=== PATIENT | female | born 1965 ===

== ENCOUNTER 2017-02-05 15:05 | Emergency (ER) | payer MEDICAID ==
[2017-02-05 15:05] VITALS: BMI 34.2
[2017-02-05 15:16] VITALS: BP 122/80; PULSE 98; RESP 20; TEMP 97.7; O2SAT 98
== END 2017-02-05 15:11 | disposition left against medical advice (07) ==
LOC: C.ER 15:05
DX: R21 Rash and other nonspecific skin eruption (principal); Z02.9 Encounter for administrative examinations, unspecified

== ENCOUNTER 2017-02-08 07:26 | Emergency (ER) | payer MEDICAID ==
[2017-02-08 07:26] VITALS: BMI 34.2
[2017-02-08 07:32] VITALS: PULSE 91; RESP 16; TEMP 97.5; O2SAT 98
[2017-02-08 07:34] VITALS: BP 122/86
--- NOTE | 2017-02-08 07:50 | C.PDOC ---
History Of Present Illness 51 year old female presents to the ED with complaints of upper back and neck pain that has worsened since diagnosed with shingles Wednesday (02/05/2017). She states she has taken antivirals and prednisone. Patient notes that rash has slightly improved and has taken Motrin with no relief. Patient denies any nausea , vomiting, and any other complaints at this time. Time Seen by Provider: 02/08/17 07:41 Chief Complaint (Nursing): Back Pain History Per: Patient History/Exam Limitations: no limitations Onset/Duration Of Symptoms: Days Current Symptoms Are (Timing): Still Present Quality Of Discomfort: "Pain" Previous Symptoms: Back Pain, Neck Pain Past Medical History Reviewed: Historical Data, Nursing Documentation, Vital Signs Vital Signs: Last Vital Signs Temp 97.5 F L 02/08/17 07:31 Pulse 91 H 02/08/17 07:31 Resp 16 02/08/17 07:31 BP 122/86 02/08/17 07:32 Pulse Ox 98 02/08/17 08:01 - Medical History PMH: Anxiety, Asthma (never hospitalized), Back Problems (bulging disc), Bipolar Disorder, Depression, Fractures (right ankle), Gastritis Surgical History: Endoscopy - [facility] Procedures GROUP PSYCHOTHERAPY (12/21/16) INDIVIDUAL PSYCHOTHERAPY, COGNITIVE-BEHAVIORAL (12/21/16) INDIVIDUAL PSYCHOTHERAPY, SUPPORTIVE (12/21/16) Family History: States: Unknown Family Hx - Social History Hx Tobacco Use: Yes Hx Alcohol Use: No Hx Substance Use: Yes - Immunization History Hx Tetanus Toxoid Vaccination: No Hx Influenza Vaccination: No Hx Pneumococcal Vaccination: No Review Of Systems Constitutional: Negative for: Fever, Chills Respiratory: Negative for: Cough Gastrointestinal: Negative for: Nausea, Vomiting, Diarrhea Musculoskeletal: Positive for: Neck Pain, Back Pain (upper back pain) Skin: Positive for: Rash (has improved since shingles diagnosis) Physical Exam - Physical Exam Appears: Non-toxic, No Acute Distress Skin: Warm, Dry, Rash (vesicular rash to right side of neck and upper back) Neck: Normal ROM, Supple, Other (vesicular rash to right side of neck ) Cardiovascular: Rhythm Regular, No Murmur Respiratory: No Rales, No Rhonchi, No Stridor, No Wheezing Gastrointestinal/Abdominal: Soft, No Tenderness, No Distention, No Guarding, No Rebound Back: Other (Vesicular rash to upper back ) Extremity: Normal ROM, No Tenderness Neurological/Psych: Oriented x3 ED Course And Treatment O2 Sat by Pulse Oximetry: 98 Medical Decision Making Medical Decision Making: Discussed with patient risk of opiate addiction and dependence at bed side. Disposition - Disposition Disposition: HOME/ ROUTINE Disposition Time: 08:15 Condition: STABLE Additional Instructions: please continue to take the medications prescribed by your pmd. please return to er with worsening symptoms or concerns Prescriptions: traMADol [Ultram] 50 mg PO Q8 PRN #10 tab PRN Reason: Pain, Severe (8-10) Instructions: Lisa (ED) - Clinical Impression Clinical Impression: Postherpetic neuralgia - Scribe Statement The provider has reviewed the documentation as recorded by the Scribraymon Jacques All medical record entries made by the Scribe were at my direction and personally dictated by me. I have reviewed the chart and agree that the record accurately reflects my personal performance of the history, physical exam, medical decision making, and the department course for this patient. I have also personally directed, reviewed, and agree with the discharge instructions and disposition.
== END 2017-02-08 08:07 | disposition home or self-care (01) ==
LOC: C.ER 07:26
DX: B02.29 Other postherpetic nervous system involvement (principal)

== ENCOUNTER 2017-06-16 12:52 | Emergency (ER) | payer MEDICAID ==
[2017-06-16 13:06] VITALS: BMI 30.7
[2017-06-16 13:10] VITALS: O2SAT 99
[2017-06-16] MEDS ORDERED: Sodium Chloride 0.9% 1,000 ML IV ONE (13:25)
[2017-06-16 14:02] LABS: BASO % 0.7 % (0.0-2.0); EOS # 0.3 K/uL (0.0-0.7); EOS % 5.7 % (0.0-4.0); HEMATOCRIT 41.1 % (34.0-47.0); LYMPH # 1.7 K/uL (1.0-4.3); LYMPH % 29.5 % (20.0-40.0); MEAN CELL VOLUME 91.2 fL (81.0-99.0); MEAN CORPUSCULAR HEMOGLOBIN 30.8 pg (27.0-31.0); MEAN CORPUSCULAR HGB CONC 33.8 g/dL (33.0-37.0); MEAN PLATELET VOLUME 7.6 fL (7.2-11.7); MONO # 0.3 K/uL (0.0-0.8); MONO % 5.5 % (0.0-10.0); RED CELL DISTRIBUTION WIDTH 13.3 % (11.5-14.5); WHITE BLOOD COUNT 5.7 K/uL (4.8-10.8)
[2017-06-16 14:06] LABS: RBC URINE 1 /hpf (0-3); URINE BILIRUBIN NEGATIVE (NEGATIVE); URINE BLOOD NEGATIVE (NEGATIVE); URINE CALCIUM OXALATE CRYSTALS OCC /hpf (<OCC); URINE COLOR Yellow (YELLOW); URINE GLUCOSE (UA) NORMAL (Normal); URINE KETONE NEGATIVE (NEGATIVE); URINE LEUKOCYTE ESTERASE TRACE Leu/uL (Negative); URINE PROTEIN NEGATIVE (NEGATIVE); URINE UROBILINOGEN NORMAL mg/dL (0.2-1.0); WBC URINE 2 /hpf (0-5)
[2017-06-16 14:13] LABS: CHLORIDE 101 mmol/L (98-107); POTASSIUM 3.3 mmol/L (3.6-5.2); SODIUM 141 mmol/L (132-148)
[2017-06-16 14:15] LABS: ALB/GLOB RATIO 1.2 (1.0-2.1); ALKALINE PHOSPHATASE 100 U/L (38-126); AST/SGOT 18 U/L (14-36); BILIRUBIN,TOTAL 0.6 mg/dL (0.2-1.3); BLOOD UREA NITROGEN 11 mg/dL (7-17); CARBON DIOXIDE 25 mmol/L (22-30); GFR AFRICAN-AMERICAN > 60
[2017-06-16 14:16] LABS: ALCOHOL SERUM < 10 mg/dl (0-10); ALT/SGPT 30 U/L (9-52); CALCIUM 8.9 mg/dl (8.6-10.4); GLUCOSE,RANDOM 130 mg/dL (65-105); MAGNESIUM 1.8 mg/dL (1.6-2.3)
[2017-06-16] MEDS ORDERED: Potassium Chloride 20 mEq ER Tab PO STA (14:58)
--- NOTE | 2017-06-16 15:02 | C.PDOC ---
History Of Present Illness Pt states that she feels "dehydrated". States that she saw an top precipitator operator helper that told her that her IOP was low. He wants her to see an rn first assistant. Time Seen by Provider: 06/16/17 13:14 Chief Complaint (Nursing): Dizziness/Lightheaded History Per: Patient Onset/Duration Of Symptoms: Days (few) Current Symptoms Are (Timing): Still Present Current Symptoms: Malaise Possible Causative Factor(s): Other (Vomiting 2 days ago) Fall Associated With With Symptoms: No Severity: Moderate Additional History Per: Prior Records - Symptoms Of CVA Associated Symptoms: denies: Impaired Speech, Seizure Activity, New Vision Deficit(Left), New Vision Deficit(Right), Decreased Ability To Walk, New Confusion Recent Head Trauma: No Past Medical History Reviewed: Historical Data, Nursing Documentation, Vital Signs Vital Signs: Last Vital Signs Temp 98.2 F 06/16/17 13:09 Pulse 90 06/16/17 13:09 Resp 20 06/16/17 13:09 BP 115/77 06/16/17 13:09 Pulse Ox 99 06/16/17 13:09 - Medical History PMH: Anxiety, Asthma (never hospitalized), Back Problems (bulging disc), Bipolar Disorder, Depression, Fractures (right ankle), Gastritis Surgical History: Endoscopy - [facility] Procedures GROUP PSYCHOTHERAPY (12/21/16) INDIVIDUAL PSYCHOTHERAPY, COGNITIVE-BEHAVIORAL (12/21/16) INDIVIDUAL PSYCHOTHERAPY, SUPPORTIVE (12/21/16) Family History: States: Unknown Family Hx - Social History Hx Tobacco Use: Yes Hx Alcohol Use: No Hx Substance Use: Yes (USED TO PER PATIENT) - Immunization History Hx Tetanus Toxoid Vaccination: No Hx Influenza Vaccination: No Hx Pneumococcal Vaccination: No Review Of Systems Except As Marked, All Systems Reviewed And Found Negative. Constitutional: Positive for: Malaise. Negative for: Fever Eyes: Negative for: Pain, Vision Change Cardiovascular: Negative for: Chest Pain Respiratory: Negative for: Cough, Shortness of Breath Gastrointestinal: Positive for: Nausea, Vomiting. Negative for: Abdominal Pain , Diarrhea, Melena, Hematochezia, Hematemesis Genitourinary: Positive for: Frequency. Negative for: Dysuria Musculoskeletal: Negative for: Neck Pain Skin: Negative for: Rash Neurological: Negative for: Weakness, Numbness, Headache, Dizziness Psych: Negative for: Psychosis, Suicidal ideation Physical Exam - Physical Exam Appears: Non-toxic, No Acute Distress Skin: Normal Color, Warm, Dry, No Rash Head: Atraumatic, Normacephalic Eye(s): bilateral: PERRL, EOMI, Other (contact lenses in place) Oral Mucosa: Moist Neck: Normal ROM, Supple Cardiovascular: Rhythm Regular Respiratory: Normal Breath Sounds, No Accessory Muscle Use Gastrointestinal/Abdominal: Soft, No Tenderness Back: No CVA Tenderness Extremity: Normal ROM, No Pedal Edema, No Calf Tenderness Neurological/Psych: Oriented x3, Normal Motor, Normal Sensation ED Course And Treatment - Laboratory Results Result Diagrams: 06/16/17 13:54 06/16/17 13:54 Lab Interpretation: No Acute Changes Urine POC: Negative O2 Sat by Pulse Oximetry: 99 Pulse Ox Interpretation: Normal Progress - Interventions Interventions:: Observation, Intravenous fluid - Data Reviewed Data Reviewed: Lab, Old records - Patient Status Patient status: Mostly improved - Continuity of Care Discussed patient case with:: Patient, ED Nurse - Patient Plan Patient Plan: Discharge, F/U with PCP, Continue present meds Disposition Counseled Patient/Family Regarding: Studies Performed, Diagnosis, Need For Followup, Smoking Cessation - Disposition Referrals: Abilio Pepper MD [Medical Doctor] - Ulises Meier MD [Staff Provider] - Disposition: HOME/ ROUTINE Disposition Time: 15:04 Condition: IMPROVED Additional Instructions: Drink plenty of fluids. Avoid illicit drugs. Follow up with your primary doctor and with an Marketing Data Specialist. Return to the ER if you develop worsening of symptoms or if you have any other concerns. Forms: [employer] (Czech), General Discharge Instructions - Clinical Impression Clinical Impression: Malaise and fatigue
[2017-06-16 15:20] VITALS: BP 133/78; PULSE 78; RESP 18; TEMP 98.1
[2017-06-16] MEDS ORDERED: Potassium Chloride 20 mEq ER Tab PO ONE (15:27)
== END 2017-06-16 15:28 | disposition home or self-care (01) ==
LOC: C.ER 12:52
DX: R53.81 Other malaise (principal); R53.83 Other fatigue
CPT/HCPCS: 80053; 80164; 80320; 80324; 80345; 80346; 80349; 80353; 80358; 80361; 81001; 83735; 83992; 85025; 96360; 99284; J7040

== ENCOUNTER 2017-06-22 05:15 | Inpatient (IN) | payer MEDICAID ==
[2017-06-22 05:15] VITALS: BMI 30.7
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
[2017-06-22 06:43] LABS: BASO % 0.5 % (0.0-2.0); EOS # 0.1 K/uL (0.0-0.7); LYMPH # 1.4 K/uL (1.0-4.3); LYMPH % 20.2 % (20.0-40.0); MEAN CELL VOLUME 91.4 fL (81.0-99.0); MEAN CORPUSCULAR HEMOGLOBIN 31.2 pg (27.0-31.0); MEAN CORPUSCULAR HGB CONC 34.2 g/dL (33.0-37.0); MEAN PLATELET VOLUME 7.2 fL (7.2-11.7); MONO # 0.3 K/uL (0.0-0.8); RED CELL DISTRIBUTION WIDTH 13.2 % (11.5-14.5); WHITE BLOOD COUNT 6.9 K/uL (4.8-10.8)
[2017-06-22 07:28] VITALS: RESP 20
[2017-06-22 07:39] LABS: CHLORIDE 102 mmol/L (98-107)
[2017-06-22 07:40] LABS: POTASSIUM 3.7 mmol/L (3.6-5.2); SODIUM 145 mmol/L (132-148)
[2017-06-22 07:42] LABS: ALB/GLOB RATIO 1.1 (1.0-2.1); ALKALINE PHOSPHATASE 90 U/L (38-126); ALT/SGPT 42 U/L (9-52); AST/SGOT 25 U/L (14-36); BILIRUBIN,TOTAL 0.6 mg/dL (0.2-1.3); BLOOD UREA NITROGEN 14 mg/dL (7-17); CARBON DIOXIDE 25 mmol/L (22-30); GFR AFRICAN-AMERICAN > 60; GLUCOSE,RANDOM 100 mg/dL (65-105)
[2017-06-22 07:43] LABS: ALCOHOL SERUM < 10 mg/dl (0-10); CALCIUM 9.1 mg/dl (8.6-10.4)
[2017-06-22 10:00] LABS: URINE BILIRUBIN NEGATIVE (NEGATIVE); URINE BLOOD NEGATIVE (NEGATIVE); URINE COLOR Yellow (YELLOW); URINE GLUCOSE (UA) NORMAL (Normal); URINE KETONE NEGATIVE (NEGATIVE); URINE LEUKOCYTE ESTERASE NEG Leu/uL (Negative); URINE PROTEIN NEGATIVE (NEGATIVE); URINE UROBILINOGEN NORMAL mg/dL (0.2-1.0)
[2017-06-22 11:07] VITALS: O2SAT 99
[2017-06-22] MEDS ORDERED: Albuterol HFA 90 mcg/actuation (8 g) INH PRN (12:28)
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
--- NOTE | 2017-06-22 14:10 | PCM.BM ---
<Nichole Orellana - Last Filed: 06/22/17 14:07> Treatment Plan Problems - Problems identified on initial assessmt Depression Date Initiated: 06/22/17 Time Initiated: 14:07 Assessment reference: NA Status: Active Substance Abuse Date Initiated: 06/22/17 Time Initiated: 14:08 Assessment reference: NA Status: Active Treatment assets and liabiliti Patient Assests: cooperative, ADL independent, good past tx response, cognitively intact Patient Liabilities: live alone, poor support system, substance abuse (crack/ cocaine) - Milieu Protocol Maintain good personal hygiene: daily Encourage regular showers Conduct patient checks and document Observation sheet: Q15 minutes Maintain personal safety: every shift Educate patient to report safety concerns to staff, every shift Monitor environment for contraband/sharps Medication safety: Monitor for expected outcome, potential side effects: every shift, Assess barriers to learning: every shift, Assess readiness for medication education: every shift Milieu Narrative: Bipolar depressed: -[id number] mg daily for now -Resume Depakote -Resume Seroquel 100 at bedtime -Attend groups and activities -Support and psychoeducation -CBT Cocaine: -Support and psychoeducation -[place] for abstinence -attend groups and activities Tobacco: -Patch -[place] for abstinence Panic disorder: -Zoloft -CBT 35 minutes Discharge/Continuing Care - Treatment Team Participation Patient/Family/SO Statement: Bipolar depressed: -[id number] mg daily for now -Resume Depakote -Resume Seroquel 100 at bedtime -Attend groups and activities -Support and psychoeducation -CBT Cocaine: -Support and psychoeducation -[place] for abstinence -attend groups and activities Tobacco: -Patch -[place] for abstinence Panic disorder: -Zoloft -CBT 35 minutes <Isma Brenner - Last Filed: 06/22/17 21:45> - Diagnosis (1) Bipolar disorder Status: Acute Interventions: 06/22/17 21:45 * Assess/adjust medications daily and /or as needed * See patient on an individual basis 7x/week to assess level of manic behaviors and stability * Discuss risks, benefits, side effects and alternatives of medications * (2) Cocaine abuse Status: Acute Interventions: 06/22/17 21:45 * Assess 7x/week regarding severity of withdrawal * Educate regarding risks, benefits, side effects and alternatives of medications * Use Motivational Interviewing for abstinence * Use CBT for relapse prevention * Medication management for withdrawal symptoms * Encourage medication assisted treatment * <MarkRamon - Last Filed: 06/23/17 10:23> - Diagnosis (1) Bipolar 1 disorder, depressed, severe Status: Acute Interventions: 06/23/17 10:23 * Assess/adjust medications daily and /or as needed * See patient on an individual basis 7x/week to assess level of manic behaviors and stability * Discuss risks, benefits, side effects and alternatives of medications (2) Cocaine use disorder, moderate, dependence Status: Acute Interventions: 06/23/17 10:25 * Assess 7x/week regarding severity of withdrawal * Educate regarding risks, benefits, side effects and alternatives of medications * Use Motivational Interviewing for abstinence * Use CBT for relapse prevention * Medication management for withdrawal symptoms * Encourage medication assisted treatment <Ronit Aaron - Last Filed: 06/23/17 11:10> Family Contact Family involvement: Famliy/SO not involved - Goals for Treatment Patient goals for treatment: "I [facility] to [facility] back to my [facility]. " Discharge/Continuing Care - Education Needs Education Needs: Patient Medication, Patient Coping Skills, Patient Placement options, Patient Community resources - Discharge Discharge Criteria: Tolerates medication w/o severe side effects, Free of paranoid thoughts, Free of agitation, No longer exhibiting s/s of withdrawal, Reduction of target symptoms Discharge to:: Home - Treatment Team Participation Discussed with Family/SO: No Was Patient/Family/SO present at Treatment Team Meeting: Yes
[2017-06-22] MEDS: Divalproex 500 mg DR Tab PO SCH (17:35)
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
--- NOTE | 2017-06-23 10:23 | PCM.PYCHPN ---
Psychiatric Progress Note - Psychiatric Progress Note Patient seen today, length of contact: 16 min Patient Chief Complaint: I am feeling better Problems Identified/Issues Discussed: The pt is seen, chart reviewed and case discussed. The pt is improving with medications and no breakthrough sxs reported or noted. No SEs from meds Support and psychoed given NH and CBt used After care discussed, he and SW called [facility] Medication Change: No Medical Record Reviewed: Yes Mental Status Examination - Cognitive Function Orientation: Person, Place, Situation, Time Memory: Intact Attention: WNL Concentration: WNL Association: WNL Fund of Knowledge: Poor - Mood Mood: Depressed, Anxious - Affect Affect: Constricted - Speech Speech: Soft - Formal Thought Process Formal Thought Process: No Impairment - Suicidal Ideation Suicidal Ideation: No - Homicidal Ideation Homicidal Ideation: No Goal/Treatment Plan - Goal/Treatment Plan Need for Continued Stay: Discharge may exacerbated symptoms, Severe functional impairment Progress Toward Problem(s) and Goals/Treatment Plan: Bipolar 1 d/o , depressed, severe Panic d/o w/o agoraphobia Borderline Pers. d/o Cocaine use d/o - moderate Tobacco use d/o - moderate Bipolar depressed: -[id number] mg daily for now -Resume Depakote -Resume Seroquel 100 at bedtime -Attend groups and activities -Support and psychoeducation -CBT Cocaine: -Support and psychoeducation -[place] for abstinence -attend groups and activities Tobacco: -Patch -[place] for abstinence Panic disorder: -Zoloft -CBT - Smoking Cessation Smoking Cessation Initiated: No
[2017-06-23] MEDS: Divalproex 500 mg DR Tab PO SCH ×2 (10:29→17:11)
[2017-06-23] MEDS: Fluticasone Nasal 50 mcg/Spray NAS SCH (10:31)
[2017-06-23] MEDS ORDERED: Aluminum Hydroxide/Magnesium Hydroxide Susp (30 mL) PO PRN (23:30)
[2017-06-24 07:42] VITALS: BP 88/53; PULSE 64; TEMP 98
[2017-06-24] MEDS: Divalproex 500 mg DR Tab PO SCH (09:34)
[2017-06-24] MEDS: Fluticasone Nasal 50 mcg/Spray NAS SCH (09:34)
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
== END 2017-06-24 10:48 | disposition home or self-care (01) | DRG 430 ==
LOC: C.ER 05:15 → C.5E 11:10
PROVIDERS: ADMIT Psychiatry & Neurology Psychiatry; ATTEND Psychiatry & Neurology Psychiatry
DX: F31.4 Bipolar disorder, current episode depressed, severe, without psychotic features (principal); F14.20 Cocaine dependence, uncomplicated; F41.0 Panic disorder [episodic paroxysmal anxiety]; F17.210 Nicotine dependence, cigarettes, uncomplicated

== ENCOUNTER 2017-08-13 08:35 | Emergency (ER) | payer MEDICAID ==
[2017-08-13 09:10] VITALS: BP 117/78; PULSE 89; RESP 18; TEMP 98.4; O2SAT 98; BMI 29.0
--- NOTE | 2017-08-13 09:18 | C.PDOC ---
History Of Present Illness 52 year old female, with past medical history of asthma, presents to Emergency Department for evaluation of cough, white phlegm, and congestion for the last 3 days. Patient reports using inhaler at home 3-4 times a day without improvement. Patient states she had fever (Tmax 99) yesterday. Otherwise, patient denies any chest pain, throat pain, ear pain, headache, or any other associated symptoms at this time. Time Seen by Provider: 08/13/17 09:10 Chief Complaint (Nursing): Cough, Cold, Congestion History Per: Patient History/Exam Limitations: no limitations Onset/Duration Of Symptoms: Days (3) Current Symptoms Are (Timing): Still Present Location Of Pain: None Sick Contacts (Context): None Associated Symptoms: Fever, Cough, Sputum, Nasal Congestion. denies: Sore Throat, Neck Pain, Sinus Drainage, Myalgias, Nausea, Vomiting, Diarrhea Ear Symptoms: Bilateral: None Recent travel outside of the [place]: No Additional History Per: Patient Past Medical History Reviewed: Historical Data, Nursing Documentation, Vital Signs Vital Signs: Last Vital Signs Temp 98.4 F 08/13/17 08:49 Pulse 89 08/13/17 08:49 Resp 18 08/13/17 08:49 BP 117/78 08/13/17 08:49 Pulse Ox 98 08/13/17 09:23 - Medical History PMH: Anxiety, Asthma (takes Albuterol), Back Problems (bulging disc), Bipolar Disorder, Depression, Fractures (right ankle...approx 12 yrs ago), Gastritis ( No Tx) Surgical History: Endoscopy - [facility] Procedures GROUP PSYCHOTHERAPY (12/21/16) INDIVIDUAL PSYCHOTHERAPY, COGNITIVE-BEHAVIORAL (12/21/16) INDIVIDUAL PSYCHOTHERAPY, SUPPORTIVE (12/21/16) Family History: States: Unknown Family Hx - Social History Hx Tobacco Use: Yes Hx Alcohol Use: No Hx Substance Use: Yes - Immunization History Hx Tetanus Toxoid Vaccination: No Hx Influenza Vaccination: No Hx Pneumococcal Vaccination: No Review Of Systems Except As Marked, All Systems Reviewed And Found Negative. Constitutional: Positive for: Fever ENT: Positive for: Nose Congestion. Negative for: Ear Pain, Nose Discharge, Throat Pain, Throat Swelling Cardiovascular: Negative for: Chest Pain, Palpitations, Edema, Light Headedness Respiratory: Positive for: Cough, Shortness of Breath, Sputum (white). Negative for: Hemoptysis Gastrointestinal: Negative for: Nausea, Vomiting, Abdominal Pain Skin: Negative for: Rash, Bruising Neurological: Negative for: Headache, Dizziness Physical Exam - Physical Exam Appears: Non-toxic, No Acute Distress Skin: Normal Color, Warm, Dry Head: Atraumatic, Normacephalic Eye(s): bilateral: Normal Inspection, EOMI Ear(s): Bilateral: Normal Nose: Normal Oral Mucosa: Moist Throat: Normal, No Erythema Neck: Normal ROM, Supple Chest: Symmetrical Cardiovascular: Rhythm Regular, No Murmur Respiratory: Normal Breath Sounds, No Rales, No Rhonchi, No Wheezing Extremity: Normal ROM, No Pedal Edema Neurological/Psych: Oriented x3, Normal Speech Gait: Steady ED Course And Treatment O2 Sat by Pulse Oximetry: 98 (on RA) Pulse Ox Interpretation: Normal Progress Note: Patient was given Zithromax PO. Medical Decision Making Medical Decision Making: Patient remained afebrile alert and oriented with stable vital signs during ER evaluation. Zithromax given PO. Patient given follow up instructions. Instructed to return to ER if symptoms worsen or new symptoms arise. Disposition Counseled Patient/Family Regarding: Need For Followup, Rx Given - Disposition Referrals: Homar Del Toro DPM [[facility]] - Disposition: HOME/ ROUTINE Disposition Time: 09:30 Condition: GOOD Additional Instructions: Follow up with your primary medical doctor or clinic in 2-5 days for further evaluation. Take medications as prescribed. Return to the emergency department at any time if symptoms persist or worsen. 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 - Scribe Statement The provider has reviewed the documentation as recorded by the Scribe Adele Sim All medical record entries made by the Scribe were at my direction and personally dictated by me. I have reviewed the chart and agree that the record accurately reflects my personal performance of the history, physical exam, medical decision making, and the department course for this patient. I have also personally directed, reviewed, and agree with the discharge instructions and disposition.
== END 2017-08-13 09:48 | disposition home or self-care (01) ==
LOC: C.ER 08:35
DX: J06.9 Acute upper respiratory infection, unspecified (principal)

== ENCOUNTER 2018-02-17 19:59 | Emergency (ER) | payer SELFPAY ==
[2018-02-17 20:00] VITALS: BMI 30.7
[2018-02-17 20:07] VITALS: BP 131/55; RESP 20; TEMP 98; O2SAT 100
[2018-02-17] MEDS ORDERED: Albuterol-Ipratrop 3 mg / 0.5 (3 ml) UD IH STA (20:15)
[2018-02-17] MEDS ORDERED: Albuterol 0.083% Inhal Sol (2.5 mg/3 mL) UD INH STA (20:15)
[2018-02-17] MEDS ORDERED: Albuterol-Ipratrop 3 mg / 0.5 (3 ml) UD ONE ×2 (20:21→20:26)
[2018-02-17] MEDS ORDERED: Albuterol 0.083% Inhal Sol (2.5 mg/3 mL) UD ONE (20:38)
--- NOTE | 2018-02-17 22:09 | C.PDOC ---
History Of Present Illness 52 year old female with a Hx of asthma presents to the ER with a complaint of a cough for the past week. Patient states she does not have a nebulizer at home, she has been using her pump with relief. Denies fever, chills, sore throat, sick contact, or recent travel. Time Seen by Provider: 02/17/18 20:08 Chief Complaint (Nursing): Cough, Cold, Congestion History Per: Patient History/Exam Limitations: no limitations Onset/Duration Of Symptoms: Days Current Symptoms Are (Timing): Still Present Recent travel outside of the [place]: No Past Medical History Reviewed: Historical Data, Nursing Documentation, Vital Signs Vital Signs: Last Vital Signs Temp 98.0 F 02/17/18 20:03 Pulse 74 02/17/18 22:41 Resp 20 02/17/18 22:41 BP 131/55 L 02/17/18 20:03 Pulse Ox 100 02/17/18 22:41 - Medical History PMH: Anxiety, Asthma (takes Albuterol), Back Problems (bulging disc), Bipolar Disorder, Depression, Fractures (right ankle...approx 12 yrs ago), Gastritis ( No Tx) Surgical History: Endoscopy - [facility] Procedures GROUP PSYCHOTHERAPY (12/21/16) INDIVIDUAL PSYCHOTHERAPY, COGNITIVE-BEHAVIORAL (12/21/16) INDIVIDUAL PSYCHOTHERAPY, SUPPORTIVE (12/21/16) Family History: States: Unknown Family Hx - Social History Hx Tobacco Use: Yes Hx Alcohol Use: No Hx Substance Use: No - Immunization History Hx Tetanus Toxoid Vaccination: No Hx Influenza Vaccination: Yes Hx Pneumococcal Vaccination: No Review Of Systems Constitutional: Negative for: Fever, Chills ENT: Negative for: Throat Pain Respiratory: Positive for: Cough Physical Exam - Physical Exam Appears: Non-toxic Skin: Normal Color, Warm, Dry Head: Atraumatic, Normacephalic Eye(s): bilateral: Normal Inspection Nose: Normal Oral Mucosa: Moist Throat: Normal, No Erythema, No Exudate Chest: Symmetrical, No Tenderness Cardiovascular: Rhythm Regular Respiratory: No Rales, No Rhonchi, Wheezing (Diffuse expiratory) Neurological/Psych: Oriented x3, Normal Speech ED Course And Treatment O2 Sat by Pulse Oximetry: 100 (Room air) Pulse Ox Interpretation: Normal - Radiology CXR: Interpreted by Me, Viewed By Me CXR Interpretation: Yes: No Acute Disease. No: Infiltrates Progress Note: CXR ordered, results were negative. Albuterol nebulizer and prednisone administered. On reevaluation, patient reports improvement of symptoms, she is resting comfortably in no acute respiratory distress, vitals are stable. Patient is requesting an Rx for cough medicine, Rx for tessalon; patient states she is already taking tessalon at home, Rx for bromfed given. Patient returns again stating she does not want any cough medicine she can get OTC, she wants something stronger with [facility]iates. [facility], [facility] found to have previous Rx for promethazine with codiene in November, October, and in 2017 had a total of 9 Rx for promethazine with codiene. Explained to patient that opiates are a dangerous substance and can create dependancy, patient understands and is requesting 1 dose here in the ER, patient given dose of promethazine with codiene and discharged home, patient states she was very unsatisfied. Disposition - Disposition Referrals: Oswald Al MD [Medical Doctor] - Disposition: HOME/ ROUTINE Disposition Time: 22:06 Condition: STABLE Additional Instructions: Follow up with PMD within 1-2 days. Return to ED if feel worse. 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 - Scribe Statement The provider has reviewed the documentation as recorded by the Scribraymon Baron All medical record entries made by the Scribe were at my direction and personally dictated by me. I have reviewed the chart and agree that the record accurately reflects my personal performance of the history, physical exam, medical decision making, and the department course for this patient. I have also personally directed, reviewed, and agree with the discharge instructions and disposition.
[2018-02-17] MEDS ORDERED: Promethazine/Cod 6.25mg-10mg/5ml Syr UD PO STA (22:33)
[2018-02-17] MEDS ORDERED: Promethazine/Cod 6.25mg-10mg/5ml Syr UD ONE (22:37)
[2018-02-17 22:42] VITALS: PULSE 74
--- NOTE | 2018-02-18 09:33 | RAD ---
Chest x-ray two views History: Cough and wheezing. Comparison: 09/22/2017 Findings: Biapical pleural thickening with upper lobe granulomatous changes. Mild venous congestion. Bibasilar breast and nipple shadows. Small nodular density at the right lung base may represent nipple shadow versus confluence of shadows with ribs and vessels versus small nodule. Interval followup may be helpful if clinically indicated. Heart size within normal limits. Degenerative changes in the spine and shoulders. Impression: Biapical pleural thickening with upper lobe granulomatous changes. Mild venous congestion. Bibasilar breast and nipple shadows. Small nodular density at the right lung base may represent nipple shadow versus confluence of shadows with ribs and vessels versus small nodule. Interval followup may be helpful if clinically indicated.
== END 2018-02-17 22:41 | disposition home or self-care (01) ==
LOC: C.ER 19:59
DX: J45.909 Unspecified asthma, uncomplicated (principal)